=== PATIENT | male | born 1945 | race Caucasian/White ===

== ENCOUNTER 2018-10-14 01:23 | Emergency (ER) | payer MEDICARE, OTHER ==
[~2018-10-14] VITALS: Ht 170.1 cm; Wt 76.2 kg
--- NOTE | ~2018-10-14 | EKG ---
[place], [place] ELECTROCARDIOGRAM REPORT NAME: JACINDA LUNDBERG UNIT #: [id number] ROOM: DOCTOR: EPIPHANY DRAFT REPORT BIRTHDATE: [birth year] [facility] Test Date: 2018-10-14 Test Time: 01:59:41 Pat Name: JACINDA LUNDBERG Department: Room: Gender: Electrical Design Engineer: Eryn Chawla : 1945 Requested By: ALVARO CORREA Order Number: [id number] Reading MD: Geraldine Bustos MD Measurements Intervals [place] Rate: 90 P: 32 [place]: 151 QRS: -13 QRSD: 90 T: 58 QT: 355 QTc: 435 Interpretive Statements Sinus rhythm Ventricular premature complex Abnormal R-wave progression, late transition Electronically Signed On 10-14-2018 15:04:20 PST by Geraldine Bustos MD CM:EKGRPT:ELECTROCARDIOGRAM REPORT [id number] ALVARO BRAR DRAFT REPORT ALVARO CORREA DO
[~2018-10-14 01:23] MED LIST: ALLOPURINOL300 MG PO; ASPIRIN ADULT L81 M1 PO; FISH OIL SUPER1 SGL PO; FLOMAX0.4 MG PO; LISINOPRIL10 MG PO; Motrin,Rufen800 MG PO; NITROSTAT0.4 MG SL; PERCOCET 325 MG1 TA6 PO; VICODIN ES 7501 TAB PO
[2018-10-14 02:07] LABS: BASO # 0.1 10*3/uL (0.0-0.1); BASO % 0.6 % (0.0-1.0); EOS # 0.2 10*3/uL (0.0-0.4); HEMOGLOBIN 14.9 g/dl (14.0-18.0); LYMPH # 3.9 10*3/uL (1.3-4.4); LYMPH % 46.6 % (27.0-41.0); MEAN CELL VOLUME 98.2 fl (80.0-94.0); MEAN CORPUSCULAR HGB CONC 34.7 g/dl (33.0-37.0); MONO # 0.8 10*3/uL (0.1-1.0); MONO % 9.3 % (3.0-9.0); NEUT # 3.5 10*3/uL (2.3-7.9); NEUT % 41.4 % (47.0-73.0); PLATELET COUNT AUTOMATED 212 10*3/uL (130-400); RED BLOOD COUNT 4.38 10*6/uL (4.50-5.90); RED CELL DISTRI WIDTH 12.3 % (0-14.5); WHITE BLOOD COUNT 8.5 10*3/uL (4.8-10.8)
[2018-10-14 02:17] LABS: INTERNATIONAL NORM RATIO 0.9 (2.0-3.5)
[2018-10-14 02:24] LABS: ALBUMIN 3.6 gm/dl (3.1-4.5); ALKALINE PHOSPHATASE 70 U/L (45-117); BUN 14 mg/dl (7-24); CHLORIDE 105 mmol/L (98-107); CREATININE 1.06 mg/dL (0.70-1.30); POTASSIUM 3.8 mmol/L (3.5-5.1); SGOT/AST 26 IU/L (3-35); SGPT/ALT 34 U/L (12-78); SODIUM 143 mmol/L (136-145)
[2018-10-14 02:25] LABS: TROPONIN I < 0.015 ng/ml (<0.045)
[2018-10-14 02:48] VITALS: BP 134/95
== END 2018-10-14 02:58 | disposition home or self-care (01) ==
LOC: ED 01:23
PROVIDERS: Emergency Medicine
DX: I10 Essential (primary) hypertension (principal); H57.89 Other specified disorders of eye and adnexa; Z88.1 Allergy status to other antibiotic agents; Z79.82 Long term (current) use of aspirin; Z79.899 Other long term (current) drug therapy

== ENCOUNTER → 2021-09-26 | Outpatient (CLI) | payer OTHER | END | disposition home or self-care (01) | LOC: COVID19 15:26 | PROVIDERS: ATTEND Family Medicine | DX: Z20.822 Contact with and (suspected) exposure to COVID-19 (principal) ==

== ENCOUNTER → 2022-11-26 | Outpatient (CLI) | payer OTHER | LOC: US 14:56 | PROVIDERS: ATTEND Family Medicine | DX: R60.0 Localized edema (principal); M79.604 Pain in right leg ==

== ENCOUNTER → 2023-12-03 | Outpatient (CLI) | payer OTHER ==
[2023-12-03 13:35] LABS: BASO # 0.1 10*3/uL (0.0-0.1); BASO % 0.7 % (0.0-1.0); EOS # 0.2 10*3/uL (0.0-0.4); EOS % 2.2 % (1.0-4.0); HEMATOCRIT 43.6 % (42.0-52.0); LYMPH # 3.8 10*3/uL (1.3-4.4); LYMPH % 47.8 % (27.0-41.0); MEAN CELL VOLUME 103.1 fl (80.0-94.0); MEAN CORPUSCULAR HGB 34.8 pg (27.0-31.0); MEAN CORPUSCULAR HGB CONC 33.7 g/dl (33.0-37.0); MEAN PLATELET VOLUME 10.3 fl (9.6-12.3); MONO # 0.7 10*3/uL (0.1-1.0); MONO % 8.6 % (3.0-9.0); NEUT # 3.2 10*3/uL (2.3-7.9); NEUT % 40.5 % (47.0-73.0); PLATELET COUNT AUTOMATED 193 10*3/uL (130-400); RED BLOOD COUNT 4.23 10*6/uL (4.50-5.90); RED CELL DISTRI WIDTH 12.6 % (0-14.5)
[2023-12-03 14:10] LABS: ALKALINE PHOSPHATASE 69 U/L (46-116); BETA-HCG, QUANT < 3.0 mIU/mL (3); BUN 13 mg/dl (9-23); CHLORIDE 104 mmol/L (98-107); LDH 198 U/L (120-246); POTASSIUM 4.4 mmol/L (3.4-5.1); SGPT/ALT 23 U/L (5-49)
[2023-12-03 14:51] LABS: BILIRUBIN Negative (Negative); BLOOD Negative (Negative); CLARITY Clear (Clear); COLOR Yellow (Yellow); GLUCOSE Negative (Negative); KETONE Negative (Negative); LEUKO ESTERASE Negative (Negative); NITRITE Negative (Negative); PH 6.5 (4.5-8.0); SPECIFIC GRAVITY <= 1.005 (1.001-1.030); UROBILINOGEN 0.2 E.U./dl (0.0-1.0)
[2023-12-03 15:08] LABS: WBC 0-2 wbc/hpf (0-5)
== END | disposition home or self-care (01) ==
LOC: LAB 01:40 → US 14:00
PROVIDERS: ATTEND Urology
DX: N28.1 Cyst of kidney, acquired (principal); N43.3 Hydrocele, unspecified; D40.0 Neoplasm of uncertain behavior of prostate; R60.0 Localized edema; R60.9 Edema, unspecified; R53.83 Other fatigue; N28.89 Other specified disorders of kidney and ureter

== ENCOUNTER → 2024-03-04 | Outpatient (CLI) | payer OTHER ==
[2024-03-04 11:00] LABS: BASO % 0.4 % (0.0-1.0); EOS # 0.3 10*3/uL (0.0-0.4); HEMATOCRIT 43.7 % (42.0-52.0); LYMPH # 3.5 10*3/uL (1.3-4.4); LYMPH % 40.6 % (27.0-41.0); MEAN CELL VOLUME 102.1 fl (80.0-94.0); MEAN CORPUSCULAR HGB CONC 34.3 g/dl (33.0-37.0); MEAN PLATELET VOLUME 10.2 fl (9.6-12.3); MONO # 0.6 10*3/uL (0.1-1.0); MONO % 7.5 % (3.0-9.0); PLATELET COUNT AUTOMATED 215 10*3/uL (130-400); RED BLOOD COUNT 4.28 10*6/uL (4.50-5.90); RED CELL DISTRI WIDTH 12.6 % (0-14.5); WHITE BLOOD COUNT 8.5 10*3/uL (4.8-10.8)
[2024-03-04 11:13] LABS: ACT PARTIAL THROMBO TIME 24.1 SECONDS (20.0-32.1)
[2024-03-04 11:29] LABS: ALKALINE PHOSPHATASE 71 U/L (46-116); BUN 13 mg/dl (9-23); CHLORIDE 105 mmol/L (98-107); POTASSIUM 4.2 mmol/L (3.4-5.1); SGPT/ALT 26 U/L (5-49); TOTAL PROTEIN 6.8 gm/dL (6.0-8.0)
== END ==
LOC: LAB 02:09 → EDSTATUS 17:17
PROVIDERS: ATTEND Urology
DX: Z01.818 Encounter for other preprocedural examination (principal)